=== PATIENT | female | born 1970 | race African-American/Black ===

== ENCOUNTER → 2016-12-21 | Outpatient (CLI) | payer OTHER ==
[~2016-12-21] MED LIST: FLAGYL250 M1 PO; GLUCOPHAGE500 MG PO; LIPITOR20 MG PO; SOOTHE PO; TETRACYCLINE PO
== END | disposition home or self-care (01) ==
LOC: CBAR 09:58
DX: Z01.812 Encounter for preprocedural laboratory examination (principal); E66.01 Morbid (severe) obesity due to excess calories
CPT/HCPCS: 36415; 84443; 86677; G0463

== ENCOUNTER → 2017-01-11 | Outpatient (CLI) | payer OTHER ==
--- NOTE | ~2017-01-11 | EKG ---
PATIENT: RENETTA DRUMMOND UNIT #: [id number] Ventricular Rate: 68 BPM Atrial Rate: 68 BPM P-R Interval: 172 ms QRS Duration: 78 ms Q-T Interval: 396 ms QTC Calculation(Bezet): 421 ms P Charenton: -13 degrees Calculated R Charenton: 30 degrees Calculated T Charenton: 28 degrees Diagnosis Line: Normal sinus rhythm Diagnosis Line: Cannot rule out Anterior infarct , age Diagnosis Line: undetermined Diagnosis Line: Abnormal ECG Diagnosis Line: No previous ECGs available Diagnosis Line: Confirmed by LUZMA BILLS MD ([id number]) on Diagnosis Line: 01/12/2017 4:48:41 PM INTERPRETING MD: ELIE
--- NOTE | ~2017-01-11 | CR97 ---
[facility] A Service of [facility] RADIOLOGY TEXT RESULTS PATIENT: RENETTA DRUMMOND LOCATION: [facility] : 74 UNIT #: [id number] AGE: [address]: Abraham Bryant MD SEX: F ORDER DR: [id number] [address] [address] [id number] O MR#: [id number] Acc #: [id number] NAME: RENETTA DRUMMOND : 1970 SEX: F STUDY DATE/TIME: 01/11/2017 9:36 UNIT: [facility] ROOM: STUDY DESCRIPTION: CR Esophagram Attending Physician: Abraham Bryant M.D. Referring Physician: Abraham Bryant M.D. Ordering Physician: Abraham Bryant M.D. Primary Care Physician: Meir Pond MEDICAL IMAGING REPORT This report is preliminary unless electronic signature is present EXAM Esophagram, 01/11/2017. INDICATION 46-year-old female presenting for preop evaluation for Lap-Band placement. Shortness of air with activity. Symptoms began today. TECHNIQUE Spot fluoroscopic views of the esophagus were obtained in various projections after the patient ingested gas crystals and thick and thin liquid barium on 01/11/2017. COMPARISON STUDIES No comparisons. FINDINGS Notes indicate 0.9 minutes of fluoroscopy time was used in the case. Approximately 44 spot fluoroscopic views from the procedure were saved to the [employer] system. The esophagus demonstrates an unremarkable primary stripping wave. No significant secondary or tertiary contractions identified. No focal esophageal mass, stricture, or other mucosal abnormality. No hiatal hernia. IMPRESSION 1. Negative esophagram. 2. Notes indicate 0.9 minutes of fluoroscopy time was used in the case. Approximately 44 spot fluoroscopic views from the procedure were saved to the [employer] system. Dictated by... Barry Bang M.D. [facility] A Service of [facility] RADIOLOGY TEXT RESULTS PATIENT: RENETTA DRUMMOND LOCATION: [facility] : 74 UNIT #: [id number] AGE: [address]: Abraham Bryant MD SEX: F ORDER DR: THIS IS AN ELECTRONICALLY VERIFIED REPORT Barry Bang M.D. at 01/11/2017 4:50 PM Maverick TD: 01/11/2017 12:21 JOB #: [id number] MEDICAL IMAGING REPORT Page 1 of 1 COPY
--- NOTE | ~2017-01-11 | CR63 ---
[facility] A Service of [facility] RADIOLOGY TEXT RESULTS PATIENT: RENETTA DRUMMOND LOCATION: [facility] : 74 UNIT #: [id number] AGE: [address]: Abraham Bryant MD SEX: F ORDER DR: [id number] [facility] [address] [place], [place] [address] [id number] O MR#: [id number] Acc #: [id number] NAME: RENETTA DRUMMOND : 1970 SEX: F STUDY DATE/TIME: 01/11/2017 9:14 UNIT: [facility] ROOM: STUDY DESCRIPTION: CR Chest 2 View Attending Physician: Abraham Bryant M.D. Referring Physician: Abraham Bryant M.D. Ordering Physician: Abraham Bryant M.D. Primary Care Physician: Meir Pond MEDICAL IMAGING REPORT This report is preliminary unless electronic signature is present EXAM Chest PA and lateral 01/11/2017 HISTORY Morbid obesity, preop laparoscopic gastric banding, shortness breath on exertion today. FINDINGS PA and lateral examination of the chest upright shows a good expansion of the parenchyma with a normal distribution of the pulmonary vascularity. There is no indication of congestion, effusion, infiltrate, tumor, or nodular density. The pleural reflections and diaphragmatic contours are normal. The cardiac silhouette and mediastinal anatomy is within normal limits. IMPRESSION Normal chest. Dictated by... Ivan Wadsworth M.D. THIS IS AN ELECTRONICALLY VERIFIED REPORT Ivan Wadsworth M.D. at 01/11/2017 5:33 PM CRESCENCIO/behzad TD: 01/11/2017 11:28 JOB #: [id number] MEDICAL IMAGING REPORT Page 1 of 1 COPY
[2017-01-11 10:00] LABS: HEMATOCRIT 36.6 % (35.0-45.0); HEMOGLOBIN 11.6 gm/dL (12.0-16.0); MEAN CELL VOLUME 77.9 FL (83-96); MEAN CORPUSCULAR HEMOGLOBIN 24.6 PG (28-34); MEAN CORPUSCULAR HGB CONC 31.6 g/dL (30-36); RED BLOOD COUNT 4.71 X10e (3.90-5.30); WHITE BLOOD COUNT 7.2 X10e3 (4.0-10.5)
[2017-01-11 10:47] LABS: ALBUMIN SERUM 3.8 g/dL (3.5-5.0); BILIRUBIN,TOTAL 0.5 mg/dL (0.2-2.0); BUN/CREATININE RATIO 13.75; CREATININE SERUM 0.8 mg/dL (0.6-1.4); PROTEIN TOTAL SERUM 7.3 g/dL (6.0-8.3)
== END | disposition home or self-care (01) ==
LOC: CRAD 08:06
PROVIDERS: Surgery
DX: Z01.818 Encounter for other preprocedural examination (principal)
CPT/HCPCS: 36415; 71020; 74220; 80053; 80061; 84443; 85027; 93005

== ENCOUNTER → 2017-01-23 | Day surgery (SDC) | payer OTHER ==
--- NOTE | ~2017-01-23 | OR ---
Unit #: [id number] #: [id number] Patient: RENETTA DRUMMOND [id number] [address] [id number] O MR#: [id number] NAME: RENETTA DRUMMOND ROOM: Date of Procedure: 01/23/2017 Admission Date: 01/23/2017 Surgeon: Abraham Bryant M.D. : 1970 Attending Physician: Abraham Bryant M.D. Referring Physician: Abraham Bryant M.D. Primary Care Physician: Meir Pond OPERATIVE REPORT PREOPERATIVE DIAGNOSIS Chronic morbid obesity, BMI of 49. POSTOPERATIVE DIAGNOSES 1. Chronic morbid obesity, BMI of 49. 2. Paraesophageal hiatal hernia. PROCEDURES PERFORMED 1. Laparoscopic adjustable gastric band. 2. Laparoscopic paraesophageal hiatal hernia repair. PHYSICAL THERAPIST [place]. ANESTHESIA General endotracheal anesthesia. ESTIMATED BLOOD LOSS Minimal. IV FLUIDS 800 crystalloid. COMPLICATIONS None. INDICATIONS FOR PROCEDURE The patient is a 51-year-old with chronic morbid obesity. DESCRIPTION OF PROCEDURE The patient was taken to the operating room and placed in supine position. General anesthesia was induced. The abdomen was prepped and draped. A 3-cm incision was then made left of the midline. A 10-mm Visiport was then placed intraabdominal under direct vision. The abdomen was insufflated to 15 mmHg with CO2. The patient was then placed in a steep reversed Trendelenburg. General inspection of the abdomen revealed what appeared to be a paraesophageal hernia. This was identified with a defect at the diaphragm using anterior palpation with the instrument. We then made a small incision in the subxiphoid region. A Ashwini liver retractor was then placed intraabdominal and used to retract the left lobe of the liver upward to further expose the paraesophageal hernia and GE junction. I then placed a 5-mm port in the right upper quadrant, a 10-mm Unit #: [id number] #: [id number] Patient: RENETTA DRUMMOND port in the left upper quadrant, and another 5-mm port in the left lower quadrant. The stomach was retracted medial and downward. Upon retracting the stomach, we took down the paraesophageal ligament, exposing the right and left alden at the paraesophageal hernia. Any hernia sac was reduced. We then repaired the paraesophageal hernia using interrupted #0 Ethibond sutures in a ipeiub-ck-ltuon type fashion. This formed a snug repair to the anterior esophagus. We then retracted the stomach medially and further exposed the angle of His using Bovie electrocautery. The stomach was then retracted laterally. We then took down the hepatogastric ligament with Bovie electrocautery. This exposed the right alden. Using blunt dissection, I created a retrogastric tunnel from this point to the angle of His. The band was then placed intraabdominal through the 10-mm port site. This was then brought through the retrogastric tunnel in a pars flaccida technique. The band was then closed anteriorly to form a 20-mL to 25-mL anterior gastric pouch. The fundus was then secured to the anterior pouch to prevent movement around the stomach using two interrupted #0 Ethibond sutures. A third suture was then used as a gathering stitch from the lesser curve to the anterior stomach, gathering and imbricating the remaining fundus of the stomach. The tubing was then brought out through the midline 10-mm port site. All ports and the Ashwini liver retractor were removed under direct vision with no evidence of abdominal hemorrhage. A polypropylene mesh was then secured to the posterior face of the laparoscopic band port. This was secured using #0 Ethibond suture. This was then cut to shape. The port was then connected to the tubing and placed into a subcutaneous pocket just anterior to the rectus sheath. Its position was then confirmed. All tubing was then placed intraabdominal. The wounds were then closed with interrupted 4-0 Vicryl. The patient tolerated the procedure well and was sent to the recovery room in good condition. Dictated by... Cherelle Torres/glenn TD: 01/23/2017 18:20 JOB #: [id number] OPERATIVE REPORT Page 1 of 1 X Abraham Bryant MD PROCEDURE OPERATIVE NOTE
--- NOTE | ~2017-01-23 | CR7 ---
[facility] A Service of [facility] RADIOLOGY TEXT RESULTS PATIENT: RENETTA DRUMMOND LOCATION: [facility] : 74 UNIT #: [id number] AGE: [address]: Abraham Bryant MD SEX: F ORDER DR: [id number] [facility] [address] [place], [place] [address] [id number] O MR#: [id number] Acc #: [id number] NAME: RENETTA DRUMMOND : 1970 SEX: F STUDY DATE/TIME: 01/23/2017 13:09 UNIT: [facility] ROOM: STUDY DESCRIPTION: CR Abdomen Single AP View Attending Physician: Abraham Bryant M.D. Referring Physician: Abraham Bryant M.D. Ordering Physician: Abraham Bryant M.D. Primary Care Physician: Meir Pond MEDICAL IMAGING REPORT This report is preliminary unless electronic signature is present EXAM AP abdomen. DATE 01/23/2017 HISTORY Postoperative evaluation for laparoscopic banding procedure today. COMPARISON Esophagram, 01/11/2017. FINDINGS Gastric band device projects over the expected location of the esophagogastric junction. The phi angle is approximately 72.1 degrees. Connector tubing extends in a contiguous fashion to the insufflation port located in the right gbw-nf-hrivd abdomen. There is moderate gaseous distension of the stomach. No gross free air is seen. Bilateral tubal ligation clips are incidentally noted. Imaged lung bases appear clear. IMPRESSION Satisfactory postoperative appearance, status post gastric band device placement with a phi angle of approximately 72.1 degrees. Dictated by... Elsa Best M.D. THIS IS AN ELECTRONICALLY VERIFIED REPORT Elsa Best M.D. at 01/24/2017 7:[address] [facility]/francisco j [facility] A Service of [facility] RADIOLOGY TEXT RESULTS PATIENT: RENETTA DRUMMOND LOCATION: [facility] : 74 UNIT #: [id number] AGE: [address]: Abraham Bryant MD SEX: F ORDER DR: TD: 01/23/2017 14:17 JOB #: [id number] MEDICAL IMAGING REPORT Page 1 of 1 COPY
== END | disposition home or self-care (01) ==
LOC: CSUR 08:24
PROVIDERS: Surgery
PROC: 0BQS4ZZ (ICD-10-PCS; 2017-01-23)
PROC: 0BQR4ZZ (ICD-10-PCS; 2017-01-23)
PROC: 0DV64CZ Restriction of Stomach with Extraluminal Device, Percutaneous Endoscopic Approach (ICD-10-PCS; principal; 2017-01-23 10:30)
DX: E66.01 Morbid (severe) obesity due to excess calories (principal); K44.9 Diaphragmatic hernia without obstruction or gangrene; Z68.42 Body mass index [BMI] 45.0-49.9, adult; E11.9 Type 2 diabetes mellitus without complications
CPT/HCPCS: 74000; 82947; 84703; C1781; J0330; J0690; J1650; J1885; J2250; J2405; J2710; J3010